=== PATIENT | female | born 1970 | race Caucasian/White ===

== ENCOUNTER 2020-05-20 18:08 | Emergency (ER) | payer MEDICAID ==
[~2020-05-20] VITALS: Ht 167.6 cm; Wt 86.4 kg
[2020-05-20 18:09] VITALS: BP 152/74
[2020-05-20] MEDS ORDERED: BUPR75 PO (18:18)
[2020-05-20] MEDS ORDERED: DEXT5TAB16 PO (18:18)
[2020-05-20 18:50] LABS: APPEARANCE,URINE CLEAR (CLEAR); BILIRUBIN,URINE NEGATIVE (NEGATIVE); GLUCOSE, URINE (UA) >=1000 mg/dL (NEGATIVE); KETONES,URINE NEGATIVE (NEGATIVE); LEUKOCYTE ESTERASE ,URINE NEGATIVE (NEGATIVE); NITRATE,URINE NEGATIVE (NEGATIVE); OCCULT BLOOD,URINE TRACE (NEGATIVE); PROTEIN,URINE NEGATIVE (NEGATIVE); UROBILINOGEN,URINE 0.2 mg/dL (<=1.0)
[2020-05-20 18:56] LABS: BACTERIA,URINE None Seen /HPF (None Seen); RBC,URINE 0-2 /HPF (0-2); SQUAMOUS EPITHELIAL CELL,UR Rare /LPF (None Seen); WBC,URINE 0-2 /HPF (0-5)
== END 2020-05-20 20:18 | disposition home or self-care (01) ==
LOC: EMS 18:08
DX: N39.0 Urinary tract infection, site not specified (principal)
CPT/HCPCS: 99283